=== PATIENT | female | born 2000 | race Caucasian/White ===

== ENCOUNTER → 2024-07-27 | Outpatient (CLI) | payer OTHER, SELFPAY | END | disposition home or self-care (01) | LOC: LABSPEC 11:38 | PROVIDERS: PCP Nurse Practitioner Family; Referring Provider Surgery; Visit Provider Surgery | DX: L05.01 Pilonidal cyst with abscess (principal) | CPT/HCPCS: 87070; 87075; 87077; 87186; 87205 ==

== ENCOUNTER 2024-09-17 09:17 | Day surgery (SDC) | payer SELFPAY, OTHER ==
[2024-09-17] VITALS (10 sets, daily range): BP systolic 88–112; BP diastolic 64–74; PULSE 88–110; RESP 16; TEMP 36.4–37.2; O2SAT 94–100; BMI 21.5
--- NOTE | 2024-09-17 | PILCYST_PTH ---
PATIENT: NAILA KERNS #:[id number] LOC: [facility] [place] U#:[id number] AGE/SX: 24/F ROOM: RE09/17/[address]: Dr. Negra Nascimento MD : 2000 BED: DIS: 09/17/2024 SPEC #: [id number] RECD: 09/17/24 13:24 STATUS: TALON NURIA #: [id number] LIZZETTE: 09/17/24 00:[address]: Negra Nascimento DEPT: SURGICAL PATHOLOGY RECD BY: Santo Lopez ENTERED: 09/17/24 13:25 SP TYPE: Pilonidal OTHR DR: Dr. Stanislav Crowder DO Tissues: PILONIDAL TISSUE Procedures: Surgery Specimen Level III HEADER OPERATION: Excision, pilonidal cyst PRE-OP DIAGNOSIS: Pilonidal cyst abscesses TISSUE SUBMITTED: Pilonidal cyst MICROSCOPIC DIAGNOSIS Pilonidal cyst, excision: Consistent with inflamed pilonidal cyst. SJ.mr 09/18/2024 MICROSCOPIC DESCRIPTION Slides are reviewed. GROSS DESCRIPTION Received in fixative is one container labeled with the patient's name and designated Pilonidal cyst. The specimen consists of a piece of soft tissue measuring 2.5 x 1.5 x 0.5cm. The specimen is serially sectioned and submitted entirely in two cassettes. . 09/17/2024 TC:5 CPT:26620
[2024-09-17 09:46] LABS: Internal QC Validated? YES +Cl - CLEAR BKGD; Pregnancy, Urine Negative Negative
--- NOTE | 2024-09-17 10:02 | PRE.ANES_ITS ---
ASA Classification* ASA Classification ASA Classification: 1 Assessment & Plan Anesthesia* Anesthesia Assessment Anesthesia Assessment: Discussed sedation and/or anesthesia options, risks, benefits, and alternatives with patient/parents/legal guardian/POA. Questions invited. The patient/parents/legal guardian/POA seems to understand and agrees to proceed with anesthesia plan. Reviewed the physical assessment, medical history, allergy history and patient home medications list prior to surgery/procedure/anesthetic and documented any changes. Performed airway and anesthesia risk assessments. Anesthesia Type Anesthesia Type: General History Source History Obtained from:: Patient and Chart Anesthesia Focused Assessment* Temperature: 98.9 F Pulse Rate: 103 Blood Pressure: 112/72 Respiratory Rate: 16 Pulse Ox: 100 Oxygen Delivery Method: Room Air Airway Assessment Mouth opens: >3 cm Mallampati Score: II Teeth Condition: Intact Neck Range of motion (ROM): Full ROM Focused Labs Anesthesia Preop lab: CBC CHEMISTRY COAG Urine Test Negative Negative 09/17/24 09:30 09/17/24 Pre-Assessment Diagnosis/Proposed Procedure Planned Operative Procedure(s): EXCISION PILONDIAL CYSTECTOMY Anesthesia History 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 When Was Last Pacemaker Check QUESTION #4 FULL TEXT: You/Your Family Experience fever (hyperthermia) with Anesthesia Last Oral Intake Last Oral intake: Last Oral Intake NPO since 20:30 09/17/24 09:40 Meds taken in AM with sips of No 09/17/24 09:40 water? Meds patient instructed to take am of surgery PONV PONV - sheet metal shop helper: PONV - sheet metal shop helper Female Yes 09/03/24 13:11 HX of Motion Sickness Yes 09/03/24 13:11 HX of N/V After Surgery No 09/03/24 13:11 Non-Smoker Yes 09/03/24 13:11 Duration of Surgery greater Yes 09/03/24 13:11 than 60 minutes Number of Risk Factors 4 09/03/24 13:11 PONV Score Severe Risk 09/03/24 13:11 Height & Weight Height & Weight: Anesthesia: Height & Weight Height 5 ft 09/17/24 09:40 Weight: 50 kg 09/17/24 09:40 Body Mass Index (BMI) 21.5 09/17/24 09:40 Respiratory Assessment Respiratory Assessment - sheet metal shop helper: Respiratory Tract Infection Hx - sheet metal shop helper Hx Respiratory Tract Infection No 09/03/24 13:11 STOP Sleep Apnea STOP Sleep Apnea - sheet metal shop helper: STOP Sleep Apnea - sheet metal shop helper Hx Hypertension No 09/03/24 13:11 Hx Sleep Apnea No 09/03/24 13:11 CPAP BIPAP Do you snore loudly (louder No 09/03/24 13:11 than talking or can be heard Do you often feel tired/ No 09/03/24 13:11 fatigued/ sleepy during daytime? Has anyone observed you stop No 09/03/24 13:11 breathing during sleep? STOP Results Negative 09/03/24 13:11 QUESTION #5 FULL TEXT : Do you snore loudly (louder than talking or can be heard through closed doors)? 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 Specify any problems Hx of Preganancy in last 3 No 09/03/24 13:11 Months Nurse Filling Out Transfusion DSCHRIBER 09/03/24 13:11 & Questions: Date: 09/03/24 09/03/24 13:11 Time: 13:13 09/03/24 13:11 Patient unable to answer at this time (ie. confused, unrespo /Reproduction History /Reproductive History - sheet metal shop helper: /Reproductive Hx- sheet metal shop helper Hx Now No 09/03/24 13:11 Gestational Age (in weeks): EDC: Hx Hx Para Hx Section SAB No 09/03/24 13:11 Active Medications Active Medications: Current Medications Generic Name Dose Route Start Last Admin Trade Name Freq PRN Reason Stop Dose Admin Clindamycin Phosphate 900 mg in 50 mls @ 75 mls/hr 09/17/24 11:00 Cleocin IV 09/17/24 11:39 PREOP ONE Sodium Chloride 1,000 mls @ 15 mls/hr 09/17/24 09:30 IV 09/22/24 22:49 .Q48H ZANE Protocol PFSH Medical History Non-smoker Home Medications ?Medication ?Instructions ?Recorded ?Last Taken ?Type NRG 1 cap PO DAILY 09/03/24 Unkn own History NUTRA BURST 1 dose PO 09/03/24 Unknown H istory iasa tea 8 oz PO BID 09/03/24 Unknown History seven seventeen 2 cap PO DAILY 09/03/24 Unkn own History Allergy/AdvReac Type Severity Reaction Status Date / Time cephalexin Allergy Intermediate Rash Verified 08/28/24 12:51 Family History Father Hypertension Mother Hypertension Surgical History No history of previous surgery Social History Smoking Status: Never smoker alcohol intake: never Review of Systems (Anesthesia) ROS Narrative System reviewed and no additional complaints, except as documented.
--- NOTE | 2024-09-17 10:30 | HP.PCM_ITS ---
History and Physical Date of Admission: 09/17/24 Date of Service: 08/28/24 MR#: [id number] Acct: [id number] Name: NAILA KERNS Rep #: [id number] : 2000 Provider: Dr. Negra Nascimento MD Age/Sex: 24/F Location: [facility] Status: Signed Intake Vital Signs 07/27/2410:03 08/28/2511:50 Height 5 ft 5 ft Weight: 110 lb 8 oz 110 lb BMI 21.5 21.4 BP 99/66 116/79 Blood Pressure Location Rt brachial Rt brachial Position Sitting Sitting Respiration 18 18 Pulse 95 110 H Pulse Source Monitor Monitor Temp 97.7 F L 97.6 F L Temp Source Temporal Temporal Pulse Oximetry (%) 100 Oxygen Delivery Method room air Intake Visit Reasons: PILONIDAL CHECK Chief Complaint: pilonidal check Is patient in pain?: No Allergies cephalexin Allergy (Intermediate, Verified 08/28/24 12:51) Rash Medications ?Medication ?Instructions ?Recorded ?Confirmed ?Type herbal drugs cap PO 07/27/24 08/13/24 History PFSH Family History Father HypertensionMother Hypertension Social History Smoking Status: Never smoker alcohol intake: never HPI HPI HPI: 24-year-old female presents for pilonidal cyst with abscess. Patient has been off her antibiotics since last office visit. Patient denies any pain or drainage to the area. Patient is interested in excision. ROS General General: No weight change, appetite, fatigue, colon cancer, breast cancer or weakness HEENT HEENT: No difficulty swallowing, eye injury, eye surgery, swollen glands or hoarseness Endo Endocrine: No thyroid disease, diabetes mellitus, thyroid cancer, Hair loss, heat intolerance or cold intolerance Skin Skin: No rash or changing moles Musc Musculoskeletal: No back problems, arthritis, rheumatoid arthritis, gout or joint pain Cardio Cardiovascular: No murmur, pacemaker, heart disease, atrial fibrillation, high blood pressure, heart attack, heart stent, palpitations, shortness of breat with exertion or chest pain Psych Psychiatric: No depression, anxiety or hearing voices Resp Respiratory: No shortness of breath, No sleep apnea, No cough, No COPD, No asthma, No emphysema and No wheezing Gastro Gastrointestinal: No abdominal pain, No nausea or vomiting, No diarrhea, No constipation, No blood in stool, No acid reflux, No hemorrhoids, No ulcers, No gallbladder problem and No black,tarry stools [place] Hematologic: No blood thinners, No blood disorders, No bleeding, No anemia and No blood clots Neuro Neurologic: No system reviewed and no additional complaints, except as documented, No as per HPI, No abnormal gait, No abnormal hearing, No abnormal movements, No abnormal speech, No behavioral changes, No burning sensations, No confusion, No convulsions, No disequilibrium, No dizziness, No localized weakness, No frequent falls, No headache(s), No lack of coordination, No loss of vision, No memory loss, No numbness, No other visual disturbances, No radicular pain, No restless legs, No sensory deficit, No syncope, No tingling, No tremor(s), No weakness and No other Exam Const General: cooperative, healthy appearing, comfortable and no acute distress [facility] Head: normocephalic and atraumatic Neck Neck: supple Resp Effort & Inspection: normal respiratory effort Cardio Rate: regular rate GI Inspection: non-distended Palpation: soft Skin Other: Superior gluteal cleft incision site healing well, no swelling or tenderness or drainage at the site. Neuro General: CN's II-XI intact bilaterally Extrem General: normal to inspection Psych Mental Status: mental status grossly normal Attitude: cooperative Assessment and Plan Assessment and Plan (1) Pilonidal cyst with abscess: Status: Acute Plan Patient's superior gluteal cleft is healing well no signs of infection. Will plan for excision of pilonidal cyst. Discussed patient risk including but not limited to bleeding, infection, dehiscence at the incision requiring wound care. Patient no further question this time. Negra Nascimento M.D. Pager: [phone] [facility] [address] [place] [address], [address] [place] [address] Office: [phone] Coding Level of Care Code Off vis,est,level 3 Diagnoses Pilonidal cyst with abscess L05.01 08/31/24 0851 <Electronically signed by Negra Nascimento MD> Date Negra Nascimento MD
[2024-09-17] MEDS: Clindamycin 900 MG/50 ML BAG 75 MG IV (10:48)
[2024-09-17] MEDS: Methylene Blue 1% 100 MG/10 ML VIAL (11:20)
[2024-09-17] MEDS: Bupiv/Epi 0.25% 30 ML Vial (11:21)
--- NOTE | 2024-09-17 11:43 | PCM.OPRPT ---
Operative Report (Standard) Operative Information Date of Procedure: 09/17/24 Pre-Operative Diagnosis: Pilonidal cyst with abscess Post-Operative Diagnosis: Same Surgery/Procedure Performed: Pilonidal cystectomy brooch and bracelet maker: Yes Financial Services Agent: Keo Sierra Tasks completed by occupational therapy assistant: Opening & closing Type of Anesthesia: General/Supplemental RN Documented Start/Stop Times: Operation Date: 09/17/24 11:00 Case Time Into Pre-Op 09/17/24 09:28 Anesthesia Start 09/17/24 10:48 Into Room 09/17/24 10:48 Procedure Start 09/17/24 11:08 Procedure End 09/17/24 11:44 Procedure Start Time: 11:08 Procedure Stop Time: 11:44 Select all DRAINS/GRAFTS/IMPLANTS that apply: None Special Medications: Clindamycin 900 mg IV x 1 Estimated Blood Loss: < 10 cc Specimen collected: Yes Description of specimen(s) removed: Pilonidal cystectomy Description of surgery: Patient was brought to operating room table. Timeout was completed verifying correct patient, procedure, position, pressure, prior began procedure. General anesthesia was induced on patient's cart. Patient was then moved and placed prone on the operating table with appropriate padding. Buttocks were taped apart. Superior gluteal cleft was prepped draped usual sterile fashion with Betadine. Betadine was used to identify the pilonidal track. Elliptical incision was made around the pit and known involved skin. Electrocautery was used to completely remove the pilonidal tract including any tissue exposed to methylene blue. There is noted to be jose of hair still in the cavity. Cavity was irrigated with saline. Incision was closed with deep interrupted 2-0 Vicryl as well as 2 oh subdermal sutures. 3 vertical mattress 3-0 nylon and 1 interrupted 3-0 nylon were placed to close the skin. 4 x 4 and ABD pad was placed. Patient was extubated. Patient Toller procedure well was taken to the postanesthesia care in stable condition. Surgical Findings: See operative note Complications Complications: No
--- NOTE | 2024-09-17 11:43 | EX.PCM.DISCH ---
Discharge Instructions Diet Discharge Diet: Light diet - advance as tolerated Activity Discharge Activity: May Not Drive (for 2-3 days or while taking narcotic pain meds.) and May Shower Lifting Restrictions: 20 pounds Additional Activity Instructions:: Try to sit off to one side or the other and not directly straight down on your buttocks. Dressing / Incision Call your doctor if your incision/area has: Continuous Slow Oozing, Sudden Increased Bleeding, Increased Pain/ Swelling, Increased Redness and Foul Smelling Discharge Call your doctor if you observe: Fever of 101 or Higher Suture Line Care: Avoid Pulling/Pushing and Avoid Pinching/Bending Cleanse incision/area with: Keep Dressing Clean & Dry Additional Dressing/Incision Instructions:: Change or remove dressing in 1 day. May protect with a gauze to more protect skin from sutures Follow Up Care Please Follow Up With: Negra Nascimento MD When: Please call [phone] to make a follow up appointment for suture removal in 12-14 days. Test Results: Test results from this visit will be discussed in further detail at your follow-up appointment, if applicable. Discharge Plan Admission Attending Provider: Negra Nascimento Primary Care Provider: Stanislav Crowder Instructions Print Language: Andorran Discharge Orders/Prescriptions Prescriptions: New oxycodone 5 mg capsule 5 mg PO Q6H PRN (Reason: pain) 3 Days Qty: 7 0RF Continued NRG 1 cap PO DAILY NUTRA BURST 1 dose PO Rx Instructions: 2 tbs iasa tea 8 oz PO BID seven seventeen 2 cap PO DAILY Referrals / Follow Up: Heather Hayward [facility] [Non-Staff] - Disposition Disposition (needs filled in before D/C Order can be placed): Home, Self Care
--- NOTE | 2024-09-17 11:58 | PCM.POST.ANE ---
Anesthesia: Postop Eval I Current Vital Signs Temperature: 97.6 F Pulse Rate: 102 Blood Pressure: 97/64 Respiratory Rate: 16 Pulse Ox: 95 Oxygen Delivery Method: Room Air Assessment Airway patent: Yes Spontaneous unlabored respirations: Yes Mental status: Asleep nausea: No Vomiting: No Anesthesia Complication: No Fluid Hydration Crystalloid volume administer (ml): 400 Total IV fluid infused: 400 Progress Note Anesthesia document: Postop Eval 1 completed: Yes
--- NOTE | 2024-09-17 18:45 | POSTOPAN2_ITS ---
Anesthesia Postop Eval I Sum Postop Eval Completion status Anesthesia document: Postop Eval 1 completed: Yes Anesthesia Postop Eval I Summary Anesthesia Postop Eval I Summary: Anesthesia Postop Eval I: Assessment Summary Airway patent Yes 09/17/24 11:59 ADJUNCT BUSINESS INSTRUCTOR.[email or web address] Spontaneous unlabored Yes 09/17/24 11:59 ADJUNCT BUSINESS INSTRUCTOR.[email or web address] respirations Mental status Asleep 09/17/24 11:59 ADJUNCT BUSINESS INSTRUCTOR.[email or web address] nausea No 09/17/24 11:59 ADJUNCT BUSINESS INSTRUCTOR.[email or web address] Vomiting No 09/17/24 11:59 ADJUNCT BUSINESS INSTRUCTOR.[email or web address] Anesthesia Postop Eval I: Fluid Summary Crystalloid volume administer 400 09/17/24 11:59 ADJUNCT BUSINESS INSTRUCTOR.NIKKI (ml) Colloids volume administered ( ml) Blood Product volume administered (ml) Total IV fluid infused 400 09/17/24 11:59 ADJUNCT BUSINESS INSTRUCTOR.NIKKI Anesthesia Postop Eval I: Summary Notes Anesthesia Complication No 09/17/24 11:59 ADJUNCT BUSINESS INSTRUCTORALLEGRA Anesthesia Complication Comment: Post-operative progress note Anesthesia: Postop Eval II Evaluation Mental status: Awake and Calm Pain Level: 1 nausea: No Vomiting: No Complications Anesthesia Complication: No
--- NOTE | 2024-09-17 18:45 | PCM.POSTANE2 ---
Anesthesia Postop Eval I Sum Postop Eval Completion status Anesthesia document: Postop Eval 1 completed: Yes Anesthesia Postop Eval I Summary Anesthesia Postop Eval I Summary: Anesthesia Postop Eval I: Assessment Summary Airway patent Yes 09/17/24 11:59 SPECIALIST PHYSICIANS.[email or web address] Spontaneous unlabored Yes 09/17/24 11:59 SPECIALIST PHYSICIANS.[email or web address] respirations Mental status Asleep 09/17/24 11:59 SPECIALIST PHYSICIANS.NIKKI nausea No 09/17/24 11:59 SPECIALIST PHYSICIANS.NIKKI Vomiting No 09/17/24 11:59 SPECIALIST PHYSICIANS.[email or web address] Anesthesia Postop Eval I: Fluid Summary Crystalloid volume administer 400 09/17/24 11:59 SPECIALIST PHYSICIANS.NIKKI (ml) Colloids volume administered ( ml) Blood Product volume administered (ml) Total IV fluid infused 400 09/17/24 11:59 SPECIALIST PHYSICIANS.NIKKI Anesthesia Postop Eval I: Summary Notes Anesthesia Complication No 09/17/24 11:59 SPECIALIST PHYSICIANSALLEGRA Anesthesia Complication Comment: Post-operative progress note Anesthesia: Postop Eval II Evaluation Mental status: Awake and Calm Pain Level: 1 nausea: No Vomiting: No Complications Anesthesia Complication: No
== END 2024-09-17 16:02 | disposition home or self-care (01) ==
LOC: SDC 09:19 → AC 09:21
PROVIDERS: Anesthesiology; PCP Family Medicine; Referring Provider Surgery; Visit Provider Surgery
PROC: (CPT 11770; principal; 2024-09-17 10:45)
DX: L05.01 Pilonidal cyst with abscess (principal)
CPT/HCPCS: 11770; 00300; 81025; 88304; J2405